=== PATIENT | male | born 1995 | race Caucasian/White ===

== ENCOUNTER 2022-05-31 06:32 | Emergency (ER) | payer OTHER, SELFPAY ==
[2022-05-31 06:38] VITALS: BP 158/95; PULSE 86; RESP 16; TEMP 36.6; O2SAT 97
--- NOTE | 2022-05-31 06:54 | ED.GENADUL_ITS ---
Discharge Plan Disposition Patient Disposition: HOME Condition: Improving Discharge Details Clinical Impression: Migraine ED Provider: Bull Cat Home Meds and New Rx's Prescriptions: New sumatriptan succinate 50 mg tablet 50 mg PO ONCE Qty: 8 0RF Rx Instructions: may take second tab after 2 hours if no initial response. Max dose 4 tabs in 24 hr period No Action losartan 50 mg Tablet 50 mg PO DAILY bupropion HCl [Wellbutrin SR] 150 mg Tablet Sustained-Release 12 Hr 150 mg PO DAILY Discharge Instructions Instructions: General Headache (ED) Additional Instructions: Please follow-up with neurology. Please return to the emergency department you develop worsening headache nausea vomiting severe neck pain fevers or other abnormal symptoms. Medical Decision Making 27-year-old male history of migraine headaches presents with gradual onset headache photophobia phonophobia and nausea without vomiting, nontoxic afebrile nonmeningeal. Neurologically intact. Likely migraine headache versus tension headache low suspicion for meningitis or intracranial hemorrhage or mass. Will provide analgesia anti-inflammatory antinausea as well as sumatriptan hand and fluids, close reassessment of symptoms, likely discharge home with neurology follow-up as needed. 7: 52 patient greatly improved after medications. Ambulatory nonmeningeal nontoxic. Will give neurology referral as well as prescription for sumatriptan to be used as needed. HPI General Date/Time Provider Initiated Documentation: 05/31/22 06:38 . HPI Narrative: 27-year-old male history of migraine headaches presents with gradual onset headache since Wednesday associated with nausea, no vomiting. Does have some tension down into the shoulders however no neck stiffness. Usually headaches able to break with a cocktail at his local hospital. Has had triptans in the past but is not on a prescription. Related Data Home Medications Medication Instructions Recorded Confirmed bupropion HCl 150 mg tablet,12 hr 150 mg PO DAILY 05/31/22 05/31/22 sustained-release (Wellbutrin SR) losartan 50 mg tablet 50 mg PO DAILY 05/31/22 05/31/22 sumatriptan succinate 50 mg tablet 50 mg PO ONCE #8 tabs 05/31/22 Previous Rx's Medication Instructions Recorded sumatriptan succinate 50 mg tablet 50 mg PO ONCE #8 tabs 05/31/22 Allergies Allergy/AdvReac Type Severity Reaction Status Date / Time amoxicillin [From Augmentin] Allergy Hives Unverified 05/31/22 06:40 clavulanic acid Allergy Hives Unverified 05/31/22 06:40 [From Augmentin] General Stated Complaint: Headache ELZBIETA: 3 Review of Systems Narrative: Review of Systems Constitutional: negative Eyes: negative ENT: negative Cardiovascular: negative Respiratory: negative Gastrointestinal: Nausea : negative Musculoskeletal: negative Skin: negative Neurologic: Headache Psych: negative PFSH All Active Problems (Updated 05/31/22 @ 07:53 by Bull Cat MD) Migraine (Chronic) Social History Smoking/Tobacco Use Status: Current every day Tobacco Type: cigarettes Smoking risk assessment performed?: Yes Alcohol Intake: current Alcohol Intake frequency: a few times a month Substance use type: does not use Do you feel safe at home: Yes Do you feel safe in your relationship?: Yes Exam Narrative Exam Narrative: Physical Examination General: alert, awake, cooperative, resting comfortably, no acute distress HEENT: normocephalic, atraumatic; PERRL, EOM intact, conjunctiva normal; no nasal discharge; moist mucous membranes, oral and pharyngeal mucosa normal, tolerating secretions Neck: supple, trachea midline; full ROM Chest: normal to inspection Respiratory: normal respiratory effort, speaking in full sentences, clear to auscultation, no wheezing, rales or rhonchi Cardiac: regular rate, regular rhythm, S1S2 intact, no murmurs rubs or gallops GI: abdomen soft, non-tender, non-distended; no palpable mass or hepatosplenomegaly Skin: no lesions, rashes or trauma appreciated Neuro: AAOx3, normal speech, moving all extremities, ambulatory without assistance Psych: Appropriate mood and affect Course Vital Signs Vital signs: Vital Signs Temperature 36.6 C 05/31/22 06:38 Pulse 86 05/31/22 06:38 Respiratory Rate 16 05/31/22 06:38 Blood Pressure 158/95 H 05/31/22 06:38 Pulse Oximetry 97 05/31/22 06:38 Temperature 36.6 C 05/31/22 06:38 Temperature Source Oral 05/31/22 06:38 Pulse 86 05/31/22 06:38 Respiratory Rate 16 05/31/22 06:38 Respiratory Effort Non-Labored 05/31/22 06:42 Blood Pressure 158/95 H 05/31/22 06:38 Pulse Oximetry 97 05/31/22 06:38 Pain Level 8 05/31/22 06:42
[2022-05-31 07:36] LABS: Abs Immature Grans 0.05 10^3/uL (0.0-0.06); Absolute Basophil Count 0.07 10^3/uL (0.0-0.2); Absolute Eosinophil Count 0.42 10^3/uL (0.0-0.7); Absolute Lymphocyte Count 3.88 10^3/uL (1.2-3.4); Absolute Monocyte Count 0.54 10^3/uL (0.1-0.8); Basophils % 0.5; Eosinophils % 3.2; HCT 42.9 % (40.0-50.0); HGB 14.5 g/dL (13.5-17.5); Immature Grans % 0.4; Lymphocytes % 29.7; MCH 31.3 pg (27.0-33.0); MCHC 33.8 % (32.0-36.0); MCV 93 fL (80-95); MPV 10.4 fL (8.0-11.0); Monocytes % 4.1; Neutrophils % 62.1; Platelet Count 213 10^3/uL (130-400); RBC 4.63 10^6/uL (4.36-5.78); RDW 11.9 % (11.8-14.1); RDW-SD 40.3 fL; WBC 13.07 10^3/uL (4.4-10.8)
[2022-05-31] MEDS: Metoclopramide 10 MG/2 ML VIAL IVP (07:39)
[2022-05-31] MEDS: Ketorolac 15 MG/ML VIAL IVP (07:39)
[2022-05-31] MEDS: Normal Saline 1,000 ML 1000 ML IV (07:39)
[2022-05-31] MEDS: SUMAtriptan 6 MG/0.5 ML VIAL SC (07:39)
[2022-05-31 07:40] LABS: Absolute Neutrophil Count 8.12 10^3/uL (1.2-6.7)
[2022-05-31 07:50] LABS: ALT 40 U/L (16-63); AST 22 U/L (15-37); Albumin 3.8 g/dL (3.4-5.0); Alkaline Phosphatase 74 U/L (46-116); Anion Gap 7.9 mmol/L (3-11); BUN 10 mg/dL (7-18); Bilirubin, Total 0.5 mg/dL (0.2-1.0); CO2 26.1 mmol/L (21.0-32.0); CREATININE 0.8 mg/dL (0.70-1.30); Chloride 101 mmol/L (98-107); Glucose 114 mg/dL (74-106); Potassium 4.2 mmol/L (3.5-5.1); Sodium 135 mmol/L (136-145); Total Protein 7.4 g/dL (6.4-8.2)
--- NOTE | 2022-05-31 08:08 | NUR.NOTE ---
Neurology consult requested by ER provider, Migraines. CLB
--- NOTE | 2022-06-04 14:26 | CMACTNOTE_ITS ---
- If Service Date Differs Date of service: 06/04/22 Time of Service: 14:26 Care Management Activity Note Elías presents in the ED for a migraine. At the request of ED provider, EFRAÍN contacts Elías by telephone to inquire where he would like to be evaluated. 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 EFRAÍN coordinates a referral to Dr. Ramin Mckeon, Neurology Department, [facility], to assist Elías in obtaining an appointment for further evaluation and treatment of migraines.
== END 2022-05-31 08:13 | disposition home or self-care (01) ==
PROVIDERS: Emergency Provider Emergency Medicine
DX: G43.909 Migraine, unspecified, not intractable, without status migrainosus (principal); F17.210 Nicotine dependence, cigarettes, uncomplicated
CPT/HCPCS: 36415; 80053; 96361; 96372; 96374; 96375; 99284; 85025; J1885; J2765